=== PATIENT | female | born 1995 | race Caucasian/White ===

== ENCOUNTER 2017-01-01 22:11 | Emergency (ER) | payer OTHER ==
[~2017-01-01] VITALS: Ht 162.5 cm; Wt 61.7 kg
[~2017-01-01 22:11] MED LIST: BENADRYL25 M1 PO; CLARITIN10 MG PO; MOTRIN400 MG PO; MOTRIN600 MG PO; VALTREX1 GM PO
[2017-01-01] MEDS ORDERED: SEROQUEL200 MG PO (22:31)
[2017-01-01] MEDS ORDERED: METOPROLOL SUCC25 M2 PO (22:31)
[2017-01-01] MEDS ORDERED: AMOXICILLIN500 M2 PO (23:36)
[2017-01-01] MEDS ORDERED: Motrin,Rufen800 MG PO (23:36)
[2017-01-01] MEDS ORDERED: ZOFRAN ODT4 MG SL (23:40)
[2017-01-01] MEDS ORDERED: PEPCID20 MG PO (23:40)
== END 2017-01-01 23:58 | disposition home or self-care (01) ==
LOC: ED 22:11
DX: J01.90 Acute sinusitis, unspecified (principal); H66.91 Otitis media, unspecified, right ear; Z88.8 Allergy status to other drugs, medicaments and biological substances

== ENCOUNTER 2017-02-17 20:19 | Emergency (ER) | payer OTHER ==
[~2017-02-17] VITALS: Ht 162.5 cm
[~2017-02-17 20:19] MED LIST changes: +AMOXICILLIN500 M2 PO; +METOPROLOL SUCC25 M2 PO; +Motrin,Rufen800 MG PO; +PEPCID20 MG PO; +SEROQUEL200 MG PO; +ZOFRAN ODT4 MG SL
== END 2017-02-17 21:16 | disposition home or self-care (01) ==
LOC: ED 20:19
DX: S93.401A Sprain of unspecified ligament of right ankle, initial encounter (principal); J45.909 Unspecified asthma, uncomplicated; Z88.8 Allergy status to other drugs, medicaments and biological substances; Z79.899 Other long term (current) drug therapy; W22.8XXA Striking against or struck by other objects, initial encounter; Y93.01 Activity, walking, marching and hiking; Y92.039 Unspecified place in apartment as the place of occurrence of the external cause; Y99.8 Other external cause status

== ENCOUNTER 2017-03-05 18:41 | Emergency (ER) | payer OTHER ==
[~2017-03-05] VITALS: Ht 162.5 cm; Wt 66.2 kg
== END 2017-03-05 20:35 | disposition home or self-care (01) ==
LOC: ED 18:41
DX: Z00.00 Encounter for general adult medical examination without abnormal findings (principal); R11.0 Nausea; R42 Dizziness and giddiness; J45.909 Unspecified asthma, uncomplicated; F17.200 Nicotine dependence, unspecified, uncomplicated; Z88.8 Allergy status to other drugs, medicaments and biological substances

== ENCOUNTER 2017-05-29 03:25 | Emergency (ER) | payer OTHER ==
[~2017-05-29] VITALS: Ht 162.5 cm; Wt 63.5 kg
[2017-05-29] MEDS ORDERED: PRENA1 CHEW TA1.4 MG PO (03:31)
[2017-05-29 03:50] LABS: BASO # 0.1 10*3/uL (0.0-0.1); BASO % 0.5 % (0.0-1.0); EOS # 0.1 10*3/uL (0.0-0.4); EOS % 0.8 % (1.0-4.0); HEMATOCRIT 38.8 % (37.0-47.0); HEMOGLOBIN 13.3 g/dl (12.0-16.0); LYMPH # 2.3 10*3/uL (1.3-4.4); LYMPH % 17.9 % (27.0-41.0); MEAN CELL VOLUME 87.2 fl (81.0-99.0); MEAN CORPUSCULAR HGB 29.9 pg (27.0-31.0); MEAN CORPUSCULAR HGB CONC 34.3 g/dl (33.0-37.0); MEAN PLATELET VOLUME 9.8 fl (9.6-12.3); MONO # 0.6 10*3/uL (0.1-1.0); MONO % 4.7 % (3.0-9.0); NEUT # 9.9 10*3/uL (2.3-7.9); NEUT % 75.8 % (47.0-73.0); PLATELET COUNT AUTOMATED 354 10*3/uL (130-400); RED BLOOD COUNT 4.45 10*6/uL (4.10-5.10); RED CELL DISTRI WIDTH 13.8 % (0-14.5); WHITE BLOOD COUNT 13.1 10*3/uL (4.8-10.8)
[2017-05-29 04:13] LABS: ALBUMIN 3.7 gm/dl (3.1-4.5); ALKALINE PHOSPHATASE 88 U/L (45-117); BUN 13 mg/dl (7-24); CHLORIDE 104 mmol/L (98-107); CREATININE 0.63 mg/dL (0.55-1.02); LIPASE 104 U/L (73-393); SGOT/AST 16 IU/L (3-35); SGPT/ALT 13 U/L (12-78); SODIUM 140 mmol/L (136-145); TOTAL PROTEIN 7.2 gm/dL (6.4-8.2)
[2017-05-29 05:02] LABS: BILIRUBIN 1+ (NEGATIVE); BLOOD NEGATIVE (NEGATIVE); CLARITY SL CLOUDY (CLEAR); COLOR YELLOW (YELLOW); GLUCOSE NEGATIVE (NEGATIVE); KETONE 3+ (NEGATIVE); LEUKO ESTERASE NEGATIVE (NEGATIVE); NITRITE NEGATIVE (NEGATIVE); PH 5.5 (5.0-9.0); SPECIFIC GRAVITY >= 1.030 (1.005-1.030)
[2017-05-29 05:13] LABS: BACTERIA 1+; EPITHELIAL CELLS 30-35; MUCOUS 1+
[2017-05-29] MEDS ORDERED: BENADRYL ALLERG25 M5 PO (05:20)
[2017-05-29] MEDS ORDERED: AUGMENTIN 875-875 MG PO (05:20)
== END 2017-05-29 05:37 | disposition home or self-care (01) ==
LOC: ED 03:25
PROVIDERS: Student in an Organized Health Care Education/Training Program
DX: O23.41 Unspecified infection of urinary tract in pregnancy, first trimester (principal); R11.2 Nausea with vomiting, unspecified; Z88.8 Allergy status to other drugs, medicaments and biological substances; Z3A.09 9 weeks gestation of pregnancy